=== PATIENT | female | born 1950 | race Caucasian/White ===

== ENCOUNTER 2017-06-22 20:27 | Emergency (ER) | payer MEDICARE ==
[2017-06-22] MEDS ORDERED: Midazolam* 1 MG/ML 10 ML VIAL (10 MG) ONE (20:35)
[2017-06-22] MEDS ORDERED: fentaNYL* 50 MCG/ML 2 ML VIAL (100 MCG VIAL) ONE (20:36)
--- NOTE | 2017-06-23 00:13 | ED ---
Mauricio Camarena Tecjoon, scribthai for Lamar Allred MD on 06/22/17 at 2056 . Throat Pain/Nasal Congestion - HPI Summary HPI Summary: This patient is a 64 year old BIBA to [facility] accompanied by with a chief complaint of esophageal food impaction since yesterday, around 1400. Patient states that she has experienced similar symptoms around 3 times before. Patient states she was eating a TV dinner. The pain is rated 2/10 in severity. Symptoms aggravated by nothing. Symptoms alleviated by nothing. Patient additionally reports difficulty swallowing and drooling. Patient has had esophageal dilation to little relief. - History of Current Complaint Chief Complaint: EDThroatPain Hx Obtained From: Patient Onset/Duration: Sudden Onset, Still Present Severity: Mild Associated Signs And Symptoms: Positive: Dysphagia, Drooling - Allergies/Home Medications Allergies/Adverse Reactions: Allergies Allergy/AdvReac Type Severity Reaction Status Date / Time No Known Allergies Allergy Verified 06/22/17 20:34 PMH/Surg Hx/FS Hx/Imm Hx Previously Healthy: No Cardiovascular History: Reports: Hx Hypertension - ON MEDS Denies: Other Cardiovascular Problems/Disorders GI History: Reports: Other GI Disorders - FOOD GETTING STUCK IN ESOPHAGUS Musculoskeletal History: Reports: Hx Arthritis - OSTEOARTHRITIS, BACK Denies: Other Musculoskeletal History Sensory History: Reports: Hx Cataracts - BHANU, NO SURGERY YET, Hx Contacts or Glasses - GLASSES AND CONTACTS Denies: Hx Hearing Aid Opthamlomology History: Reports: Hx Cataracts - BHANU, NO SURGERY YET, Hx Contacts or Glasses - GLASSES AND CONTACTS Neurological History: Reports: Hx Migraine - SELDOM Denies: Other Neuro Impairments/Disorders - Surgical History Surgery Procedure, Year, and Place: [place]NEE, 2009, [place]. APPEN[place]OMY , 1955, [place], 1957, [place]. RIGHT SHOULDER, 2005, [place]. LEFT FOOT X2, [facility], 2004 Hx Anesthesia Reactions: No - Immunization History Date of Tetanus Vaccine: unk Date of Influenza Vaccine: unk Infectious Disease History: Yes Infectious Disease History: Denies: Traveled Outside the [place] in Last 30 Days - Family History Known Family History: Negative: Hypertension - Social History Lives: With Family Alcohol Use: None Hx Substance Use: No Substance Use Type: Reports: None Hx Tobacco Use: No Smoking Status (MU): Never Smoked Tobacco Review of Systems Negative: Fever Positive: Other - dysphasia, drooling All Other Systems Reviewed And Are Negative: Yes Physical Exam - Summary Physical Exam Summary: VITAL SIGNS: Reviewed. GENERAL: Patient is a well-developed and nourished female who is lying comfortable in the stretcher. Patient is not in any acute respiratory distress. HEAD AND FACE: No signs of trauma. No ecchymosis, hematomas or skull depressions. No sinus tenderness. EYES: PERRLA, EOMI x 2, No injected conjunctiva, no nystagmus. EARS: Hearing grossly intact. Ear canals and tympanic membranes are within normal limits. MOUTH: Oropharynx within normal limits. NECK: Supple, trachea is midline, no adenopathy, no JVD, no carotid bruit, no c- spine tenderness, neck with full ROM. CHEST: Symmetric, no tenderness at palpation LUNGS: Clear to auscultation bilaterally. No wheezing or crackles. CVS: Regular rate and rhythm, S1 and S2 present, no murmurs or gallops appreciated. ABDOMEN: Soft, non-tender. No signs of distention. No rebound no guarding, and no masses palpated. Bowel sounds are normal. EXTREMITIES: FROM in all major joints, no edema, no cyanosis or clubbing. NEURO: Alert and oriented x 3. No acute neurological deficits. Speech is normal and follows commands. SKIN: Dry and warm Triage Information Reviewed: Yes Vital Signs On Initial Exam: Initial Vitals Temp Pulse Resp BP Pulse Ox 99.5 F 91 15 129/58 98 06/22/17 20:32 06/22/17 20:32 06/22/17 20:32 06/22/17 20:32 06/22/17 20:32 Vital Signs Reviewed: Yes Diagnostics - Vital Signs Vital Signs Temp Pulse Resp BP Pulse Ox 06/22/17 20:32 99.5 F 91 15 129/58 98 - Laboratory Lab Statement: Any lab studies that have been ordered have been reviewed, and results considered in the medical decision making process. EENT Course/Dx - Course Course Of Treatment: This patient is a 64 year old BIBA to [facility] accompanied by with a chief complaint of esophageal food impaction since yesterday, around 1400. Patient states that she has experienced similar symptoms around 3 times before. We discussed patient care with Dr. Jay (GI) at 20:54, who agreed to come see the patient. Patient will be diagnosed with esophageal food impaction and discharged. Patient is advised to follow up with Dr. Jay (GI) in 3 weeks. The patient is agreeable with this plan. - Diagnoses Provider Diagnoses: Food impaction of esophagus - Provider Notifications Discussed Care Of Patient With: Andrew Jay - GI Time Discussed With Above Provider: 20:54 - We discussed patient care with Dr. Jay (GI), who agreed to come see the patient. Discharge - Discharge Plan Condition: Stable Disposition: HOME Patient Education Materials: Food Impaction (ED) Referrals: Homero Mojica DO [Primary Care Provider] - 3 Days Andrew Jay MD [Medical Doctor] - 07/07/17 (3 Weeks) Additional Instructions: Continue Omeprazole. Return to the ED for any new or worsening symptoms. The documentation as recorded by the Mauricio garcia Tecjoon accurately reflects the service I personally performed and the decisions made by , Lamar Allred MD.
--- NOTE | 2017-06-23 00:13 | CONS ---
CC: Dr. Mojica Swifton CONSULTATION REPORT: DATE OF CONSULT: 06/22/17 REQUESTING PHYSICIAN: Dr. Lovell in the Emergency Department. PRIMARY CARE PHYSICIAN: Aiyana Barragan. INDICATION: Esophageal foreign body. HISTORY OF PRESENT ILLNESS: Mrs. Vu is a pleasant 67-year-old female, who has a long history of e sophageal strictures. She was most recently scoped on April 11, at which time she had a mid esop hageal stricture dilated to 10 mm. She was recommended to have a repeat EGD in the next 4 to 6 weeks . After that, however, her became ill and she had to cancel the appointment. She had 2 prev ious endoscopies over the past 3 to 4 months, both of which revealed very tight mid esophageal strict ures. The first time her stricture was dilated to 8 mm, the second time to 10 mm, these were approxi mately 2 to 3 weeks apart and she was dilated to 10 mm on April 11. She states that she was eati ng chicken yesterday around noon at 2 o'clock and it became stuck. Since that point, she has not bee n able to swallow any liquids or any saliva. She finally presented to the emergency room this aftern oon at [facility] and was transferred here to [place]. She currently is having substernal ches t pain right below her breast bone. She is unable to swallow liquids or her own saliva. She denies any shortness of breath. She denies any other symptoms at this time. PAST MEDICAL HISTORY: Significant for GERD and esophageal strictures. All of her biopsies have been negative for eosinophilic esophagitis. She also has hypertension. PAST SURGICAL HISTORY: Includes appendectomy, cholecystectomy, breast reduction. MEDICATIONS: She takes Prilosec and she cannot remember the name of her high blood pressure medicati on. ALLERGIES: No known drug allergies. REVIEW OF SYSTEMS: 12 systems were reviewed, other than that mentioned in the HPI were unremarkable. PHYSICAL EXAM: Temperature is 99.5, blood pressure is 129/58. General: This is a well-appearing, m iddle-aged female, in no apparent distress. Alert, oriented, pleasant, fluent. She is spitting up s aliva into an emesis basin. HEENT: Mucous membranes are moist without lesions, ulcers or exudates. Neck: Supple, trachea is midline. Lymph: No supraclavicular or cervical lymphadenopathy. Heart: Regular rate and rhythm. Lungs: Clear to auscultation bilaterally. No wheezes, rales, or rhonchi. Abdomen: Positive bowel sounds. Soft, nontender, nondistended. No hepatosplenomegaly, masses, re bound or guarding. Skin is warm and dry. DIAGNOSTIC STUDIES/LAB DATA: None. ASSESSMENT AND PLAN: A 67-year-old female with a history of esophageal strictures and foreign bodies in the past. She was last dilated on April 11 to 10 mm. She now has chicken stuck in her esopha antoni. It has been there for greater than 24 hours. I had a long discussion with the patient and her regarding performing an upper endoscopy tonight in the emergency room. We will plan on doing that. I also discussed with them that given the long duration of the chicken being stuck in her eso phagus that the likelihood for ulceration is greater and that unfortunately does increase her risk fo r complications from the endoscopy. She also understands this. We will make arrangements for the en doscopy urgently. [id number]/[facility] #: [id number]
[2017-06-23 00:20] VITALS: BP 95/52
--- NOTE | 2017-06-23 21:04 | PRO ---
DATE OF PROCEDURE: 06/22/17 - EMERGENCY DEPT PROCEDURE: EGD performed in the emergency room for foreign body removal. MEDICATIONS GIVEN: 100 mcg IV fentanyl, 9 mg IV Versed. DESCRIPTION OF PROCEDURE: After the EGD procedure including the risks, benefits , and alternatives, not limited to perforation, surgery, and/or were explained to the patient, written consent was then obtained. IV medication was given and a bite-block was placed between the teeth. An Olympus gastroscope was then inserted into the patient's mouth, advanced down the esophagus, into the stomach, and into the distal duodenum. In the mid esophagus, there was a food bolus stuck in the esophagus. I used the Pastor net to remove at least half of the foreign bolus. It was withdrawn from the patient. I reinserted the scope and upon reinsertion of the scope and some gentle air insufflation, the remainder of the food bolus did pass through the esophageal stricture and down into the stomach. Esophageal stricture did contain 2 ulcers. The scope easily navigated through the esophageal stricture, I was using the regular adult gastroscope. I advanced the scope down the esophagus through the GE junction into the body of the stomach. Retroflex view was unremarkable except for a patulous GE junction. Forward view also was unremarkable. Scope was advanced through widely patent pylorus, into the duodenal bulb, into the distal duodenum , both of which were unremarkable. Scope was the withdrawn from the patient. She tolerated the procedure well and was returned to the care of the ED staff. IMPRESSION: 1. Complete upper endoscopy into the distal duodenum with esophageal foreign body removal. 2. Mid esophageal stricture with esophageal foreign body removed with Pastor net. 3. The patient missed her appointment for followup EGD with dilatation, we will arrange this for her. [id number]/[facility] #: [id number] [facility]ENTER[facility]aura
== END 2017-06-23 00:21 | disposition home or self-care (01) ==
LOC: ED 20:27
DX: T18.120A Food in esophagus causing compression of trachea, initial encounter (principal); I10 Essential (primary) hypertension; K21.9 Gastro-esophageal reflux disease without esophagitis; X58.XXXA Exposure to other specified factors, initial encounter; Y92.9 Unspecified place or not applicable
CPT/HCPCS: 96374; 96375; 99156; 99284; J2250; J3010

== ENCOUNTER 2019-03-24 08:22 | Inpatient (IN) | payer MEDICARE ==
[~2019-03-24 08:22] MED LIST: Buffered Lidocaine 1% SYRIN* 1 ML/SYRINGE INTRADERM ONE; Lactated Ringers 1000 ML Bag* 1,000 ML IV SCH; Tranexamic Acid 1,000 MG in NS 0.9% 50 ML* (outpatient use) IV SCH
[2019-03-24] MEDS ORDERED: ceFAZolin 2 GM in NS PREMIX(*) 2 GM/100 ML BAG IVPB ONE (08:26)
--- OUTSIDE RECORDS SUMMARY | 2019-03-24 08:26 | XMS REPORT | Continuity of Care Document ---
:1950 External Reference #:[id number] Author Name Delano Chávez M.D. (transmitted by agent of provider Awa Carrasco) Address [address] [place] [address] [place] [address] Care Team Providers Name Role Phone Homero Mojica D.O. 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 Onset: limb Social History Type Date Description Comments Sex Unknown ETOH Use Denies alcohol use Tobacco Use Start: Unknown Patient has never smoked Smoking Status Reviewed: 02/20/19 Patient has never smoked Exercise Type/Frequency Exercises sporadically Allergies, Adverse Reactions, Alerts Active Allergies Reaction Severity Comments Date Keflex 07/11/2016 Inactive Allergies NKDA 09/04/2013 Medications Active Medications SIG Qnty Indications Ordering Date Provider Diclofenac Sodium apply 4 gr to 300gm M17.11 Delano Chávez, 01/02/2019 1% Gel right knee M.D. twice a day as needed Lisinopril 1 by mouth Unknown 40mg Tablets every day Hydrochlorothiazide 1 by mouth Unknown 25mg Tablets every day Omeprazole 1 by mouth Unknown 40mg Capsules DR every day Zolpidem Tartrate 1/2 to 1 tab Unknown 10mg Tablets by mouth every night at bedtime as needed Tramadol HCL 1-2 tablets Unknown 50mg Tablets every 6 hours as needed Metoprolol Succinate ER 1 by mouth Unknown 50mg every day Tablets ER 24HR Probiotic 1 by mouth Unknown Capsules every day Ferrous Sulfate 1 twice a day Unknown 324(65Fe) mg with meal Tablets DR Vitamin C ER 1 by mouth Unknown 500mg Capsules ER every day Tylenol Extra Strength 2 tabs by Unknown 500mg mouth every 6 Tablets hours as needed Immunizations Description No Information Available Vital Signs Date Vital Result Comment 02/20/2019 11:26am Height 60 inches 5'0" Weight 107.25 lb Heart Rate 56 /min BP Systolic Sitting 132 mmHg BP Diastolic Sitting 76 mmHg Body Temperature 97.6 F BMI (Body Mass Index) 20.9 kg/m2 01/02/2019 10:49am Height 60 inches 5'0" Weight 105.00 lb weight per patient Heart Rate 60 /min BP Systolic Sitting 144 mmHg BP Diastolic Sitting 80 mmHg Body Temperature 98.5 F BMI (Body Mass Index) 20.5 kg/m2 Results Description No Information Available Procedures Description No Information Available Medical Devices Description No Information Available Encounters Type Date Location Provider Dx Diagnosis Office Visit 01/02/2019 [facility] Delano Chávez, M17.11 Unilateral primary 10:30a at [facility] osteoarthritis, right knee Assessments Date Code Description Provider 02/20/2019 M17.11 Unilateral primary osteoarthritis, right knee Delano Chávez M.D. 01/02/2019 M17.11 Unilateral primary osteoarthritis, right knee Delano Chávez M.D. Plan of Treatment 02/20/2019 - Delano Chávez M.D.M17.11 Unilateral primary osteoarthritis, right kneeFollow up:Will likely need a visit the week before surgery and then 4 weeks afterwards Functional Status Description No Information Available Mental Status Description No Information Available Referrals Description No Information Available
--- OUTSIDE RECORDS SUMMARY | 2019-03-24 08:26 | XMS REPORT | Continuity of Care Document ---
:1950 External Reference #:[id number] Author Name BRAIN Benjamin Address [address] [place] [id number] Care Team Providers Name Role Phone Homero Mojica D.O. 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 Medicine Problems Active Problems Provider Date Complex [...] BMI (Body Mass Index) 20.5 kg/m2 Results Test Acquired Date Facility Test Result H/L Range Note Urinalysis Profile 03/10/2019 [facility] Urine Color Straw [address] [place] [address] [phone] Urine Appearance Clear Urine Specific Secretary 1.008 Low 1.010-1.030 Urine pH 7.0 Normal 5-9 Urine Urobilinogen Negative Negative Urine Ketones Negative Negative Urine Protein Negative Negative Urine Leukocytes Negative Negative Urine Blood 1+ Abnormal Negative Urine Nitrite Negative Negative Urine Bilirubin Negative Negative Urine Glucose Negative Negative Urine White Blood Cell Absent Absent Urine Red Blood Cell 1+(3-5/hpf) Abnormal Absent Urine Bacteria Absent Absent CBC Auto 03/10/2019 [facility] White Blood 4.7 10^3/uL Normal 3.5-10.[address] [place] [address] [phone] Red Blood Count 3.57 10^6/uL Low 3.70-4.87 Hemoglobin 12.4 g/dL Normal 12.0-16.0 Hematocrit 36 % Normal 35-47 Mean Corpuscular Volume 100 fL High 80-97 Mean Corpuscular Hemoglobin 35 pg High 27-31 Mean Corpuscular HGB Conc 35 g/dL Normal 31-36 Red Cell Distribution Width 13 % Normal 10-15 Platelet Count 279 10^3/uL Normal 150-450 Mean Platelet Volume 7.0 fL Low 7.4-10.4 Abs Neutrophils 2.6 10^3/uL Normal 1.5-7.7 Abs Lymphocytes 1.4 10^3/uL Normal 1.0-4.8 Abs Monocytes 0.4 10^3/uL Normal 0-0.8 Abs Eosinophils 0.3 10^3/uL Normal 0-0.6 Abs Basophils 0.0 10^3/uL Normal 0-0.2 Abs Nucleated RBC 0.0 10^3/uL Granulocyte % 55.2 % Lymphocyte % 29.0 % Monocyte % 8.9 % Eosinophil % 5.9 % Basophil % 1.0 % Nucleated Red Blood Cells % 0.1 Inr/Protime 03/10/2019 [facility] Inr 1.03 Normal 0.82-1.09 [address] [place] [address] [phone] Basic Metabolic 03/10/2019 [facility] Sodium 139 mmol/L Normal 135-145 Panel [address] [place] [address] [phone] Potassium 3.2 mmol/L Low 3.5-5.0 Chloride 102 mmol/L Normal 101-111 Co2 Carbon Dioxide 30 mmol/L Normal 22-32 Anion Gap 7 mmol/L Normal 2-11 Glucose 106 mg/dL High 70-100 Blood Urea Nitrogen 15 mg/dL Normal 6-24 Creatinine 1.11 mg/dL High 0.51-0.95 BUN/Creatinine Ratio 13.5 Normal 8-20 Calcium 9.4 mg/dL Normal 8.6-10.3 Egfr Non- 48.6 >60 Egfr 58.8 >60 2 Type & Screen 03/10/2019 [facility] Patient Blood Type A Positive [address] [place] [address] [phone] Antibody Screen NEGATIVE 1 Standard intensity warfarin therapeutic range: 2.0-3.0 High intensity warfarin therapeutic range: 2.5-3.5 2 Because ethnic data is not always readily available, this report includes an eGFR for both -Americans and non- Americans. The National Kidney Disease Education Program (NKDEP) does not endorse the use of the MDRD equation for patients that are not between the ages of 18 and 70, are , have extremes of body size, muscle mass, or nutritional status, or are non- or non-. According to the National Kidney Foundation, irrespective of diagnosis, the stage of the disease is based on the level of kidney function: Stage Description GFR(mL/min/1.73 m(2)) 1 Kidney damage with normal or decreased GFR 90 2 Kidney damage with mild decrease in GFR 60-89 3 Moderate decrease in GFR 30-59 4 Severe decrease in GFR 15-29 5 Kidney failure <15 (or dialysis) Procedures Description No Information Available Medical Devices Description No Information Available Encounters Type Date Location Provider Dx Diagnosis Office Visit 02/20/2019 [facility] [place] Watt7.11 Unilateral primary 11:15a at [facility] osteoarthritis, right knee Office Visit 01/02/2019 [facility] Delano Chávez M17.11 Unilateral primary 10:30a at [facility] osteoarthritis, right knee Assessments Date Code Description Provider 02/20/2019 [id number] Unilateral primary osteoarthritis, right knee Delano Chávez M.D. 01/02/2019 M17.11 Unilateral primary osteoarthritis, right knee Delano Chávez M.D. Plan of Treatment Future Appointment(s):04/17/2019 11:00 am - Del[facility] M.D. at [facility]03/24/2019 10:00 am [facility] - Delano Chávez M.D.M17.11 Unilateral primary osteoarthritis, right kneeFollow up:Will likely need a visit the week before surgery and then 4 weeks afterwards Functional Status Description No Information Available Mental Status Description No Information Available Referrals Description No Information Available
[2019-03-24] MEDS ORDERED: ROPIVACAINE 5 MG/ML 30 ML BTL (0.5%) ONE (10:43)
[2019-03-24] MEDS ORDERED: Midazolam* 1 MG/ML 2 ML VIAL (2 MG) ONE (10:43)
[2019-03-24] MEDS ORDERED: Propofol* 10 MG/ML 20 ML BTL ONE (10:43)
[2019-03-24] MEDS ORDERED: Dexmedetomidine* 200 MCG/2 ML 2 ML VIAL ONE (10:43)
[2019-03-24] MEDS ORDERED: Lidocaine 2% PF * 5 ML VIAL ONE (10:43)
[2019-03-24] MEDS ORDERED: Lidocaine 1% w EPI 1:200,000* SDV 30 ML VIAL ONE (11:40)
[2019-03-24] MEDS ORDERED: Bupivacaine 0.5%* 50 ML MDV VIAL ONE (11:40)
[2019-03-24] MEDS ORDERED: fentaNYL* 50 MCG/ML 2 ML VIAL (100 MCG VIAL) ONE ×3 (12:19→15:01)
[2019-03-24] MEDS ORDERED: EPHEDrine (Pressors)* 50 MG/ML VIAL ONE (12:26)
[2019-03-24] MEDS ORDERED: Bupivacaine 0.5% W/EPI SDV* 30 ML VIAL ONE (12:37)
[2019-03-24] MEDS ORDERED: Dexamethasone IV* 4 MG/ML 1 ML (4 MG) ONE (12:39)
[2019-03-24] MEDS ORDERED: Ondansetron INJ* 2 MG/ML VIAL ONE (12:39)
[2019-03-24] MEDS ORDERED: Ketorolac INJ* 30 MG/ML 1 ML VIAL ONE (12:39)
[2019-03-24] MEDS ORDERED: Metoclopramide IV* 5 MG/ML 2 ML VIAL ONE (12:39)
[2019-03-24] MEDS ORDERED: oxyCODONE TAB* 5 MG TAB PO PRN (12:55)
[2019-03-24] MEDS ORDERED: fentaNYL* 50 MCG/ML 2 ML VIAL (100 MCG VIAL) IV PRN (12:55)
[2019-03-24] MEDS ORDERED: DiMENhydriNATE IV* 50 MG/ML VIAL IV PUSH PRN (12:55)
[2019-03-24] MEDS ORDERED: Naloxone* 0.4 MG/ML 1 ML VIAL IV PRN (12:55)
[2019-03-24] MEDS ORDERED: Rocuronium* 10 MG/ML VIAL ONE (12:57)
[2019-03-24] MEDS ORDERED: Phenylephrine 40 MCG/ML SYRINGE ONE (14:01)
[2019-03-24] MEDS ORDERED: HYDROmorphone INJ1* 1 MG/ML SYRINGE ONE (14:21)
[2019-03-24] MEDS ORDERED: Acetaminophen IV 1GM/100ML * 100 ML ONE (14:22)
[2019-03-24] MEDS ORDERED: Glycopyrrolate IV* 0.2 MG/ML 1 ML VIAL ONE (14:37)
[2019-03-24] MEDS ORDERED: Neostigmine Methylsulfate* 1 MG/ML 10 ML VIAL (1 mg/ml) ONE (14:37)
[2019-03-24] MEDS ORDERED: Morphine INJ* 2 MG/ML 1 ML SYRINGE (TWO MG - NEW SYRINGE VERSION) IV PRN (14:46)
[2019-03-24] MEDS ORDERED: diPHENhydraMINE IV* 50 MG/ML 1 ml VIAL (BENADRYL) IV PRN (14:46)
[2019-03-24] MEDS ORDERED: Magnesium Hydroxide LIQ* 30 ML UDC PO PRN (14:46)
[2019-03-24] MEDS ORDERED: Ondansetron ODT TAB* 4 MG PO PRN (14:46)
[2019-03-24] MEDS ORDERED: Ondansetron INJ* 2 MG/ML VIAL IV PRN (14:46)
[2019-03-24] MEDS ORDERED: diPHENhydraMINE PO* 25 MG PO PRN (14:46)
[2019-03-24] MEDS: D5W 1/2 NS 1000 ML BAG* 1,000 ML IV SCH (16:33)
[2019-03-24] MEDS ORDERED: Warfarin TAB(*) 6 MG PO ONE (17:00)
[2019-03-24] MEDS: oxyCODONE TAB* 5 MG TAB PO PRN ×2 (17:16→21:37)
[2019-03-24] MEDS: traMADol TAB* 50 MG PO SCH (17:16)
--- NOTE | 2019-03-24 20:07 | OP ---
DATE OF OPERATION: 03/24/19 - ROOM #346 DATE OF : 46 SURGEON: Delano Chávez MD. DURABLE MEDICAL EQUIPMENT TECHNICIAN: Roxie Ng RPA. ANESTHESIA: General endotracheal. PRE-OP DIAGNOSIS: Osteoarthritis, right knee. POST-OP DIAGNOSIS: Osteoarthritis, right knee. OPERATIVE PROCEDURE: Right total knee arthroplasty with NAVIO guidance. ESTIMATED BLOOD LOSS: 50 cc. COMPLICATIONS: None. HARDWARE: [employer] #5 narrow femur, Arianna size III tibia, 11 mm polyethylene spacer, 32 mm polyethylene button. INDICATION: Ms. Vu is a 68-year-old female who reports a long history of troubles with her right knee. She had presented to the office for a wrist problem and had been followed up complaining of her right knee. By x-ray, she was bone-on- bone in the lateral compartment and she had an obvious valgus deformity on exam. She was very interested in having something definitive done for the knee as she had previously done antiinflammatories and physical therapy , and while these have helped, she said the knee has become more and more painful as time has gone by. I discussed with her that a total knee arthroplasty should work well to decrease her pain and improve her function. The risks of surgery such as infection, scar formation, stiffness, DVT, pulmonary embolism, hardware failure, and continued pain were some of the risks discussed. She had been declared medically optimized and wished to proceed. DESCRIPTION OF PROCEDURE: The patient was brought in to the OR and general endotracheal anesthesia was established. A Somers catheter was placed. Tourniquet was placed over the proximal right thigh and was used during the case. Total tourniquet time would be 84 minutes. Right knee was prepped and then draped. Esmarch was used to exsanguinate the leg and the tourniquet was raised. Skin over the incisional area was infiltrated using 20 cc of 0.25% Marcaine with epinephrine. A midline incision was made beginning 4 fingerbreadths above the superior pole of the patella and carried down to the medial side of the tibial tubercle. Incision was carried down through the skin and subcutaneous tissues. Small bleeders encountered were ligated using electrocautery. Extensor mechanism was exposed and a sharp parapatellar arthrotomy was made. A gush of clear yellowish joint fluid was encountered. Soft tissues were sharply elevated from the medial side of the tibia and the fat pad was sharply excised. Edges of the patella were also sharply cleaned and the patella measured approximately 16 mm in thickness, and a nice cut was taken, leaving approximately 11 mm of a nice smooth surface. The patella was then easily subluxated laterally. The knee was flexed up and nice exposure of the distal femur was obtained. Femoral bone pins were placed for NAVIO guidance and then the skin 4 fingerbreadths below the tibial tubercle was incised so that the tibial pins could be placed. NAVIO references were then input with the arrays as well as the pins. Range of motion was also done to make sure that we had good nice exposure of the whole leg. Once this was done, the [place]'s line was taken and femur and tibia were scanned into the NAVIO. Once this was done, the components were selected. I templated her to approximately 4. Navio selected a 5 initially and she was adjusted to a 5 narrow, which seemed to fit better. Tibia sat better for a 3. She had the classic valgus issues and with the looseness medially. Components were adjusted until this was minimized and her flexion and extension gaps appeared to be acceptable. Distal femur was then burred using the NAVIO and the pin holes were then placed and then the holes for the cutting block were also placed. With placing the block, however, her bone was so soft that I could place the block anywhere. Block was gently pushed in by hand and then using the top hat for the NAVIO, this was held on the top so that the alignment was essentially perfect while this was pushed in the rest of the way. Three pins were then used to hold the cutting block in place. Anterior cut was taken and she could have been moved a little more posteriorly as the NAVIO guidance is quite conservative. Posterior cut and chamfer cuts were all taken. Attention was turned to the tibia. Peg holes were burred using the NAVIO and cutting block was placed. Again, I could rock the cutting block into any direction and the top hat was used such that the alignment was almost perfect and again, 3 pins were used to pin this into place. Tibial cut was taken and tibial cut appeared a little generous. Bone was removed and she was trialed with a spacer block. She was just a little bit loose in flexion and extension was quite good. This corresponded well to the templating. Tibia was sized and the 3 sat very nicely. Push pins were placed and the proximal tibia was drilled and then punched. Five femur was placed and the notch cut was finished using the reamer and then the sweat box attendant. She was trialed with a 9 trial polyethylene and she seemed that she was just a little bit loose. I thought, therefore, that the 11 polyethylene would probably work well. Considering we had lost the tibial pin with the tibial placement, she was just taken through range of motion and then stress range of motion and this corresponded well to our templating. Femoral and tibial pins were removed. Patella sized nicely for a 32 and holes were drilled and trial was snapped into place. Patellar tracking was excellent. Trial instrumentation was removed and the knee was copiously pulse lavaged. Cement was being prepared. Posterior condyles, both medial and femoral, each were injected with 10 cc of 0.25% Marcaine with epinephrine. Similarly, an additional 10 cc was placed into the medial gutter and additional 10 cc into the lateral gutter. Tibia followed by femur and patella were all cemented into place. Excess cement was removed and the cement was allowed to harden. Tibial pin sites were repaired during this time. Once the cement had hardened, she was trialed with a 9. It was little loose, and with the 11, really sat nicely. Knee was again copiously pulse lavaged and the 11 polyethylene was then snapped into place. Knee was again pulse lavaged and parapatellar arthrotomy was repaired using interrupted #1 Vicryl sutures. Tourniquet was let down. No significant bleeding was encountered. Subcutaneous tissues were reapproximated using 2-0 Vicryl. Skin was closed using angie. Sterile dressing and a Cryo/ Cuff were applied in the OR. The patient was then extubated in the OR and was stable on transfer to the recovery room. [id number]/[facility] #: [id number] IAN
--- NOTE | 2019-03-24 20:24 | CONS ---
CONSULTATION REPORT: DATE OF CONSULT: 03/24/19 REQUESTING PROVIDER: Dr. Chávez. REASON FOR CONSULT: General co-medical management. HISTORY OF PRESENT ILLNESS: This is a 68-year-old female with a past medical history significant for GERD, esophageal strictures, and hypertension, who was admitted on 03/24/19 status post a right total knee replacement after failing conservative outpatient management. Hospital Medicine was consulted for general co- medical management of her hypertension and GERD. The patient was seen in recovery room just prior to her transfer to the floor, was in good spirits, appeared slightly hard of hearing, denied any pain, and was in no acute distress. PAST MEDICAL HISTORY: Significant for GERD, esophageal strictures, hypertension , osteoarthritis, and depression. PAST SURGICAL HISTORY: Appendectomy, cholecystectomy, breast reduction, left foot surgery x2, pilonidal cyst removal. MEDICATIONS: 1. Tramadol 50 mg p.o. t.i.d. 2. Sertraline 25 mg p.o. q.a.m. 3. Omeprazole 40 mg p.o. q.a.m. 4. Metoprolol tartrate 50 mg p.o. b.i.d. 5. Lisinopril 40 mg p.o. q.p.m. 6. Hydrochlorothiazide 25 mg p.o. q.a.m. 7. Famotidine 20 mg p.o. q.a.m. 8. Probiotics 1 capsule p.o. q.a.m. ALLERGIES: The patient has no known drug allergies. FAMILY HISTORY: Mother had breast cancer. Father had COPD. SOCIAL HISTORY: Denies any tobacco use, alcohol use, or recreational drug use. 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 REVIEW OF SYSTEMS: A 12-point system review was performed that was positive for Somers catheter, mild pain to the right knee, hard of hearing. Denies any chest pain, shortness of breath, abdominal pain, nausea, vomiting, or issues with moving her bowels. PHYSICAL EXAM: Vital Signs: Temperature 97.5 Fahrenheit, 84 pulse, 11 respirations, 98% oxygen on room air, 128/60 blood pressure. General: This is a well-developed woman seen resting in the bed, no acute distress noted. Eyes: Conjunctivae pink and moist. PERRLA. EOMs intact. ENT: Oropharynx clear. Mucous membranes moist. Neck is supple. Cardiac: S1, S2 present. Heart rate regular. No murmurs, gallops, or rubs appreciated. Respiratory: Lung sounds clear throughout bilaterally on room air. No accessory muscle use noted. Abdomen is soft, nontender, nondistended with positive bowel sounds x4. Genitourinary: Somers catheter in place, draining medium clear yellow urine. Musculoskeletal: Able to dorsi and plantarflex, able to move all extremities. Cap refill less than 3 seconds to bilateral lower extremities. 2+ positive pedal pulses. Skin: Dressing intact to right knee with Cryo unit in place. No other open areas or rashes appreciated. Neurologic: Sensation intact to light touch throughout. No focal deficits appreciated. Psych: Alert and oriented x4. Thought content organized. DIAGNOSTIC STUDIES/LAB DATA: Postoperative right knee x-ray showed the expected postoperative changes. No laboratory data for this admission. ASSESSMENT AND PLAN: My impression is that this is a 68-year-old female with a past medical history significant for gastroesophageal reflux disease, esophageal strictures, and hypertension, who was admitted on 03/24/19 status post a right total knee replacement after failing outpatient management. 1. Status post right total knee replacement. Pain and bowel management as per Ortho. PT and OT ordered. Somers to be removed in the a.m. IV fluids until tolerating p.o. well and then may saline lock. 2. Hypertension. We will hold lisinopril and hydrochlorothiazide for now. Blood pressures have been slightly elevated in the PACU, though most recent one was 120s/60s. We will restart if need be with holding parameters tomorrow, though certainly may resume them upon discharge. Continue metoprolol tartrate. 3. Gastroesophageal reflux disease. May continue omeprazole and famotidine. No current signs or symptoms of indigestion. 4. Depression. Continue sertraline. 5. DVT prophylaxis: Continue Coumadin as ordered by Ortho with heparin subcutaneously to bridge. 6. Code status is full code. 7. Condition: The patient is stable. 8. Disposition: Admit inpatient to short-stay surgical. TIME SPENT: Time spent on the patient is about 60 minutes with half of it spent [id number]. Thank you for allowing us to participate in the care of this patient. We will follow during this admission. [id number]/[facility] #: [id number] IAN
[2019-03-24] MEDS: ceFAZolin 1 GM ADVAN(*) 1 GM in NS 0.9% 50 ML* 50 ML IVPB SCH (21:34)
[2019-03-24] MEDS: Acetaminophen TAB* 325 MG PO SCH (21:37)
[2019-03-24] MEDS: Docusate CAP* 100 MG PO SCH (21:37)
[2019-03-24] MEDS: Metoprolol Tartrate TAB* 50 mg PO SCH (21:37)
[2019-03-24] MEDS: Magnesium Hydroxide LIQ* 30 ML UDC PO SCH (21:45)
[2019-03-25] MEDS: traMADol TAB* 50 MG PO SCH ×4 (00:28→17:26)
[2019-03-25] MEDS: D5W 1/2 NS 1000 ML BAG* 1,000 ML IV SCH (03:16)
[2019-03-25] MEDS: oxyCODONE TAB* 5 MG TAB PO PRN ×4 (03:17→21:40)
[2019-03-25] MEDS: ceFAZolin 1 GM ADVAN(*) 1 GM in NS 0.9% 50 ML* 50 ML IVPB SCH ×2 (04:33→11:45)
[2019-03-25] MEDS: Acetaminophen TAB* 325 MG PO SCH ×3 (05:39→21:31)
[2019-03-25 06:09] LABS: Hematocrit 30 % (35-47); Hemoglobin 10.3 g/dL (12.0-16.0); Mean Platelet Volume 7.2 fL (7.4-10.4); Platelet Count 182 10^3/uL (150-450)
[2019-03-25 06:20] LABS: INR 1.24 (0.82-1.09)
[2019-03-25 06:27] LABS: Calcium 8.6 mg/dL (8.6-10.3); EGFR African American 71.2 (>60); EGFR Non-African American 58.9 (>60); Potassium 3.4 mmol/L (3.5-5.0)
[2019-03-25] MEDS: Metoprolol Tartrate TAB* 50 mg PO SCH ×2 (08:34→21:33)
[2019-03-25] MEDS: Heparin VIAL(*) 5000 UNITS/ML VIAL (FIVE THOUSAND) SUBCUT SCH ×3 (08:34→21:32)
[2019-03-25] MEDS: Vitamin THERAPEUTIC TAB PO SCH (08:34)
[2019-03-25] MEDS: Lactobacillus Acidophilus* 1 TAB PO SCH (08:34)
[2019-03-25] MEDS: Famotidine TAB* 20 MG PO SCH (08:34)
[2019-03-25] MEDS: Pantoprazole TAB * 40 MG TAB PO SCH (08:34)
[2019-03-25] MEDS: Docusate CAP* 100 MG PO SCH ×2 (08:34→21:31)
[2019-03-25] MEDS: Sertraline* 25 MG TAB PO SCH (08:34)
[2019-03-25] MEDS: Magnesium Hydroxide LIQ* 30 ML UDC PO SCH ×2 (08:34→21:32)
[2019-03-25] MEDS: Ketorolac INJ* 30 MG/ML 1 ML VIAL IV PRN ×3 (08:35→20:23)
[2019-03-25] MEDS: Cyclobenzaprine TAB* 10 MG PO PRN ×2 (08:37→14:10)
--- NOTE | 2019-03-25 11:49 | PN ---
Progress Note - Progress Note Date of Service: 03/25/19 SOAP: Subjective: OOB to chair, no significant complaints of pain Objective: Vital Signs Temp Pulse Resp BP Pulse Ox 99.2 F 66 18 118/52 100 03/25/19 11:36 03/25/19 11:36 03/25/19 11:45 03/25/19 11:36 03/25/19 11:36 Laboratory Last Values Hgb 10.3 g/dL (12.0-16.0) L 03/25/19 05:47 Hct 30 % (35-47) L 03/25/19 05:47 Plt Count 182 10^3/uL (150-450) 03/25/19 05:47 MPV 7.2 fL (7.4-10.4) L 03/25/19 05:47 INR (Anticoag Therapy) 1.24 (0.82-1.09) H 03/25/19 05:47 Sodium 133 mmol/L (135-145) L 03/25/19 05:47 Potassium 3.4 mmol/L (3.5-5.0) L 03/25/19 05:47 Chloride 98 mmol/L (101-111) L 03/25/19 05:47 Carbon Dioxide 28 mmol/L (22-32) 03/25/19 05:47 Anion Gap 7 mmol/L (2-11) 03/25/19 05:47 BUN 16 mg/dL (6-24) 03/25/19 05:47 Creatinine 0.94 mg/dL (0.51-0.95) 03/25/19 05:47 Est GFR ( Amer) 71.2 (>60) 03/25/19 05:47 Est GFR (Non-Af Amer) 58.9 (>60) 03/25/19 05:47 BUN/Creatinine Ratio 17.0 (8-20) 03/25/19 05:47 Glucose 128 mg/dL (70-100) H 03/25/19 05:47 Calcium 8.6 mg/dL (8.6-10.3) 03/25/19 05:47 incision: c/d/i PE: NVI Assessment: s/p right TKA Plan: 1) PT/OT- WBAT 2) Ancef for 24 hours post-op 3) Lovenox/Coumadin for DVT prophylaxis 4) Home today if PT goals met
[2019-03-25] MEDS ORDERED: Warfarin TAB(*) 4 MG PO ONE (17:00)
[2019-03-26] MEDS: traMADol TAB* 50 MG PO SCH ×3 (00:08→12:49)
[2019-03-26 05:29] LABS: Hematocrit 27 % (35-47); Hemoglobin 9.2 g/dL (12.0-16.0); Platelet Count 164 10^3/uL (150-450)
[2019-03-26] MEDS: Heparin VIAL(*) 5000 UNITS/ML VIAL (FIVE THOUSAND) SUBCUT SCH ×2 (05:30→13:49)
[2019-03-26] MEDS: Acetaminophen TAB* 325 MG PO SCH ×2 (05:30→13:49)
[2019-03-26 05:36] LABS: INR 2.06 (0.82-1.09)
[2019-03-26 05:59] LABS: BUN/Creatinine Ratio 17.4 (8-20); Calcium 8.1 mg/dL (8.6-10.3); EGFR Non-African American 49.6 (>60); Potassium 3.7 mmol/L (3.5-5.0)
[2019-03-26] MEDS: Magnesium Hydroxide LIQ* 30 ML UDC PO SCH (08:08)
[2019-03-26] MEDS: Metoprolol Tartrate TAB* 50 mg PO SCH (08:10)
[2019-03-26] MEDS: Lactobacillus Acidophilus* 1 TAB PO SCH (08:10)
[2019-03-26] MEDS: oxyCODONE TAB* 5 MG TAB PO PRN (08:10)
[2019-03-26] MEDS: Sertraline* 25 MG TAB PO SCH (08:10)
[2019-03-26] MEDS: Vitamin THERAPEUTIC TAB PO SCH (08:10)
[2019-03-26] MEDS: Docusate CAP* 100 MG PO SCH (08:10)
[2019-03-26] MEDS: Famotidine TAB* 20 MG PO SCH (08:10)
[2019-03-26] MEDS: Pantoprazole TAB * 40 MG TAB PO SCH (08:10)
[2019-03-26] MEDS: Ketorolac INJ* 30 MG/ML 1 ML VIAL IV PRN (10:13)
--- NOTE | 2019-03-26 10:49 | DS ---
Orthopedic Discharge Summary - Discharge Summary Date of Admission:03/24/19 Date of Discharge: 03/26/19 Date of Surgery: 03/24/19 Attending Orthopedic Provider: Dr Chávez Pre-operative Diagnosis: Right knee osteoarthritis Operative Procedure: right total knee replacement Disposition of Patient: home with outpt services Condition of Patient: stable History: VIANEY CHOW is a 68 year old F with years of increasingly severe right knee pain. Patient has failed conservative management and has elected to undergo a right total knee replacement Hospital Course: VIANEY was admitted to [facility] on 03/24/19. Patient underwent a right total knee replacement without complication followed by a brief recovery in PACU and transfer to the Short Stay Surgical Unit in stable condition. Our hospitalist service, physical therapy and occupational therapy also participated in this patients care. Post-op day 1: patient was alert and in no acute distress. Dressing was clean, dry and intact. Operative extremity dorsiflexion and plantarflexion intact, sensation intact to light touch distally, DP2+. Post-op day two: No CP, SOB, dizziness or nausea. Pt appears well, NAD. dressing was changed, incision was clean, dry and intact. Patient was deemed to be medically and orthopedically stable for discharge. Physical therapy goals were met. Home Medications Medication Instructions Recorded Confirmed Type Hydrochlorothiazide TAB* 25 mg PO QAM 12/31/15 03/10/19 History [Hydrodiuril TAB*] Famotidine [Pepcid] 20 mg PO QAM 03/10/19 03/10/19 History L.acidoph,Paracasei, B.lactis 1 each PO QAM 03/10/19 03/10/19 History [Probiotic] Lisinopril TAB* [Prinivil TAB 10 40 mg PO QPM 03/10/19 03/10/19 History MG*] Metoprolol Tartrate 50 mg PO BID 03/10/19 03/10/19 History Omeprazole 40 mg PO QAM 03/10/19 03/10/19 History Sertraline* [Zoloft*] 25 mg PO QAM 03/10/19 03/10/19 History Acetaminophen TAB* [Tylenol TAB*] 975 mg PO Q8HR tab 03/26/19 Rx Docusate CAP* [Colace Cap*] 100 mg PO BID PRN #90 cap 03/26/19 Rx Warfarin TAB(*) [Coumadin TAB(*)] 2 mg PO DAILY #90 tab 03/26/19 Rx oxyCODONE/Acetam5/325MG PREPAK 2 tab PO Q4HR PRN #70 tab MDD 10 03/26/19 Rx [Percocet 5/325 TAB*] Discharge Instructions following Orthopedic Surgery: Activity: * Weight Bearing as tolerated * Continue physical therapy and occupational therapy exercises as shown * outpatient PT Wound care: * OK to shower on post-op day 3, no bathing, swimming, or submerging wound. * Use gentle soap, pat dry. Cover with antibiotic ointment, gauze, ARNOLD wrap or tape. * Make appt for suture / staple removal with the orthopedic office in 2 weeks Call Orthopedic office for: * Increased drainage * Redness * Increased pain * Fever Go to ER with shortness of breath or chest pain. Diet: * Regular diet * Increase fluids and fiber to prevent constipation. * Continue to use stool softeners, call office if no bowel motion within 48 hours. Medications See Home Medication List in your packet for medications that you should take after discharge. DVT Prophylaxis: Increases bleeding tendency Coumadin Dosing: * Please note that you have been given 2 mg tablets. * Visiting home nurse to draw blood work for INR on Sunday and . * You will be provided with dose instructions on Mondays and . * If you do not receive dosing instruction on dosing, please call our office right away. Please young dosing instructions on your calendar as they are provided to you. * Dosin mg on 03/26. Recheck INR 03/27 for further dosing instructions. Call orthopedic office if you do not receive dosing instructions. No Lovenox needed for bridging Pain Control: Percocet Dosin/325 mg 1-2 tabs by mouth every 4-6 hours as needed for pain. Maximum of 10 tabs per day. Hold for sedation, wean off as soon as pain allows. Please note that Percocet contains Tylenol (acetaminophen). Maximum daily dose of Tylenol is 4000 mg from all sources. Antibiotics are required prior to any dental work. FOLLOW UP: Follow up with [Saira] Within 4 weeks, call for appointment Please call our office with any questions or concerns ([phone]) [facility]
[2019-03-26] MEDS ORDERED: Magnesium Hydroxide LIQ* 30 ML UDC PO PRN (11:11)
[2019-03-26] MEDS ORDERED: Polyethylene Glycol 3350* 17 GM PACKET PO PRN (11:11)
[2019-03-26] MEDS ORDERED: Senna TAB 8.6 mg* TAB PO PRN (11:11)
[2019-03-26 11:29] VITALS: BP 107/51
[2019-03-26] MEDS ORDERED: Bisacodyl SUPP* 10 MG SUPP PR PRN (14:46)
[2019-03-26] MEDS ORDERED: Docusate CAP* 100 MG PO SCH (21:00)
[2019-03-26] MEDS ORDERED: Magnesium Hydroxide LIQ* 30 ML UDC PO SCH (21:00)
== END 2019-03-26 14:45 | disposition home or self-care (01) | DRG 470 ==
LOC: AA 08:22 → SSU 14:46
PROVIDERS: ADMIT Orthopaedic Surgery; ATTEND Orthopaedic Surgery
PROC: 8E0YXBZ Computer Assisted Procedure of Lower Extremity (ICD-10-PCS; 2019-03-24)
PROC: 0SRC0J9 Replacement of Right Knee Joint with Synthetic Substitute, Cemented, Open Approach (ICD-10-PCS; principal; 2019-03-24 10:30)
DX: M17.11 Unilateral primary osteoarthritis, right knee (principal); I10 Essential (primary) hypertension; G89.29 Other chronic pain; M54.9 Dorsalgia, unspecified; M81.0 Age-related osteoporosis without current pathological fracture; K21.9 Gastro-esophageal reflux disease without esophagitis; M21.061 Valgus deformity, not elsewhere classified, right knee; K22.2 Esophageal obstruction; F32.9 Major depressive disorder, single episode, unspecified; Z79.899 Other long term (current) drug therapy
CPT/HCPCS: 36415; 80048; 85014; 85018; 85049; 85610; 88305; 88311; A9270-GY; C1776; G8978-GP-CJ; G8979-GP-CI; J0690; J1100; J1170; J1644; J1885; J2001; J2250; J2405; J2704; J2710; J2765; J2795; J3010; J3490

== ENCOUNTER 2019-10-13 08:35 | Observation (INO) ==
[~2019-10-13 08:35] MED LIST changes: -Buffered Lidocaine 1% SYRIN* 1 ML/SYRINGE INTRADERM ONE; -Lactated Ringers 1000 ML Bag* 1,000 ML IV SCH; +Lactated Ringers 1000 ml BAG 1,000 ML IV SCH; -Tranexamic Acid 1,000 MG in NS 0.9% 50 ML* (outpatient use) IV SCH
[2019-10-13] MEDS ORDERED: Midazolam 2 mg/2 ml VIAL 1 mg/ml 2 ml VIAL (2 mg) ONE (09:27)
[2019-10-13] MEDS ORDERED: fentaNYL 100 mcg/2 ml 50 MCG/ML VIAL ONE ×3 (09:27→14:41)
[2019-10-13] MEDS ORDERED: ceFAZolin 2 GM PREMIX in ORs 2 GM/50 ML BAG ONE (09:50)
[2019-10-13] MEDS ORDERED: Bupivacaine 0.25% SDV 30 ML ONE (10:55)
[2019-10-13] MEDS ORDERED: Propofol 10 MG/ML 20 ML BTL ONE (11:12)
[2019-10-13] MEDS ORDERED: Rocuronium 50 mg VIAL 10 mg/ml 5 ml VIAL (50 mg) ONE (11:13)
[2019-10-13] MEDS ORDERED: Phenylephrine 40 mcg/mL 10mL (400mcg) SYRINGE ONE (11:24)
[2019-10-13] MEDS ORDERED: EPHEDrine (Pressors) 50 MG/ML VIAL ONE (11:42)
[2019-10-13] MEDS ORDERED: Ondansetron 4 mg VIAL 2 MG/ML 2 ml VIAL IV PRN ×2 (12:16→13:01)
[2019-10-13] MEDS ORDERED: Naloxone 0.4 mg VIAL 0.4 mg/ml 1 ml VIAL IV PRN (12:16)
[2019-10-13] MEDS ORDERED: Ondansetron 4 mg VIAL 2 MG/ML 2 ml VIAL ONE (12:30)
[2019-10-13] MEDS ORDERED: Dexamethasone IV 4 MG/ML VIAL 1 ml VIAL ONE (12:30)
[2019-10-13] MEDS ORDERED: Ondansetron ODT 4 mg TAB 4 MG TAB PO PRN (13:01)
[2019-10-13] MEDS ORDERED: Lactulose 30 ml UDC PO PRN (13:01)
[2019-10-13] MEDS ORDERED: diPHENhydraMINE IV 50 MG/ML 1 ml VIAL (BENADRYL) IV PRN (13:01)
[2019-10-13] MEDS ORDERED: diPHENhydraMINE 25 mg TAB PO PRN (13:01)
[2019-10-13] MEDS ORDERED: Magnesium Hydroxide LIQ 30 ML UDC PO PRN (13:01)
[2019-10-13] MEDS: fentaNYL 100 mcg/2 ml 50 MCG/ML VIAL IV PRN ×5 (13:03→14:42)
[2019-10-13] MEDS ORDERED: oxyCODONE/Acetamin 5/325 mg TAB ONE (13:09)
[2019-10-13] MEDS: oxyCODONE/Acetamin 5/325 mg TAB PO PRN ×2 (13:25→13:30)
[2019-10-13] MEDS ORDERED: HYDROmorphone 1 MG/1 ML SYRINGE ONE (13:46)
[2019-10-13] MEDS: HYDROmorphone 1 MG/1 ML SYRINGE IV PRN ×5 (13:49→14:33)
[2019-10-13] MEDS ORDERED: ceFAZolin 1 GM in Dextrose (*) 1 GM/50 ML BAG IVPB SCH (14:00)
[2019-10-13] MEDS ORDERED: D5W 1/2 NS 1000 ml BAG 1,000 ML IV SCH (14:00)
[2019-10-13] MEDS ORDERED: Morphine 2 MG/ML SYRINGE IV PRN (15:28)
[2019-10-13] MEDS ORDERED: oxyCODONE/Acetamin 5/325 mg TAB PO PRN ×2 (17:00)
[2019-10-13] MEDS: ceFAZolin 1 GM* X 3 DOSES POST-OP Q8H (AddVan) IVPB SCH (20:01)
[2019-10-13] MEDS ORDERED: Magnesium Hydroxide LIQ 30 ML UDC PO SCH (21:00)
[2019-10-14] MEDS: ceFAZolin 1 GM* X 3 DOSES POST-OP Q8H (AddVan) IVPB SCH ×2 (04:39→12:25)
[2019-10-14 06:14] LABS: Hematocrit 29 % (35-47); Mean Platelet Volume 7.4 fL (7.4-10.4); Platelet Count 178 10^3/uL (150-450)
[2019-10-14 06:32] LABS: BUN/Creatinine Ratio 20.8 (8-20); Calcium 8.3 mg/dL (8.6-10.3); EGFR African American 61.8 (>60); EGFR Non-African American 51.1 (>60); Potassium 3.8 mmol/L (3.5-5.0)
[2019-10-14] MEDS ORDERED: Vitamin THERAPEUTIC TAB PO SCH (09:00)
[2019-10-14] MEDS ORDERED: Enoxaparin 40 MG/0.4 ML SYR(*) SUBCUT SCH (12:00)
[2019-10-14 12:19] VITALS: BP 118/57
== END 2019-10-14 14:25 | disposition home or self-care (01) ==
LOC: OR 08:35 → SSU 08:35
PROVIDERS: ADMIT Physician Assistant; ATTEND Orthopaedic Surgery

== ENCOUNTER 2020-02-23 16:40 | Observation (INO) ==
[~2020-02-23 16:40] MED LIST changes: +Buffered Lidocaine 1% SYRIN 1 ml INTRADERM ONE; +Bupivacaine 0.5% SDV PF 30ML VIAL ONE; +Dexamethasone IV 4 MG/ML VIAL 1 ml VIAL IV SLOW PU ONE; +Dexamethasone IV 4 MG/ML VIAL 1 ml VIAL ONE; +EPHEDrine (Pressors) 50 MG/ML VIAL ONE; +HYDROmorphone 1 MG/1 ML SYRINGE IV PRN; +HYDROmorphone 1 MG/1 ML SYRINGE ONE; +Lactulose 30 ml UDC PO PRN; +Lidocaine 1% w EPI 1:200,000 SDV 30 ML VIAL ONE; +Lidocaine 2% PF 5 ML VIAL ONE; +Magnesium Hydroxide LIQ 30 ML UDC PO PRN; +Midazolam 2 mg/2 ml VIAL 1 mg/ml 2 ml VIAL (2 mg) ONE; +Naloxone 0.4 mg VIAL 0.4 mg/ml 1 ml VIAL IV PRN; +Ondansetron 4 mg VIAL 2 MG/ML 2 ml VIAL IV PRN; +Ondansetron 4 mg VIAL 2 MG/ML 2 ml VIAL ONE; +Ondansetron ODT 4 mg TAB 4 MG TAB PO PRN; +Propofol 10 MG/ML 20 ML BTL ONE; +Rocuronium 50 mg VIAL 10 mg/ml 5 ml VIAL (50 mg) ONE; +Vancomycin 1,000 MG VIAL ONE; +Vancomycin 1000 MG in NS 0.9% 250 ML IVPB ONE; +diPHENhydraMINE 25 mg TAB PO PRN; +diPHENhydraMINE IV 50 MG/ML 1 ml VIAL (BENADRYL) IV PRN; +fentaNYL 100 mcg/2 ml 50 MCG/ML VIAL ONE
[2020-02-23] MEDS ORDERED: fentaNYL 100 mcg/2 ml 50 MCG/ML VIAL ONE (16:44)
[2020-02-23] MEDS: fentaNYL 100 mcg/2 ml 50 MCG/ML VIAL IV PRN ×4 (16:45→17:17)
[2020-02-23] MEDS ORDERED: Vancomycin per Pharmacy 1 EA NOTE FOLLOW UP SCH (17:00)
[2020-02-23] MEDS: D5W 1/2 NS 1000 ml BAG 1,000 ML IV SCH (17:47)
[2020-02-23] MEDS: Morphine 2 MG/ML SYRINGE IV PRN ×2 (18:58→23:58)
[2020-02-23] MEDS: Magnesium Hydroxide LIQ 30 ML UDC PO SCH (21:16)
[2020-02-24] MEDS: Vancomycin 750 MG in NS 0.9% 250 ML IVPB SCH ×2 (01:58→13:38)
[2020-02-24] MEDS: D5W 1/2 NS 1000 ml BAG 1,000 ML IV SCH (06:36)
[2020-02-24 07:16] LABS: Hematocrit 22 % (35-47); Hemoglobin 7.8 g/dL (12.0-16.0); Mean Platelet Volume 6.6 fL (7.4-10.4); Platelet Count 191 10^3/uL (150-450)
[2020-02-24 07:35] LABS: BUN/Creatinine Ratio 28.4 (8-20); Calcium 8.2 mg/dL (8.6-10.3); EGFR African American 64.6 (>60); EGFR Non-African American 53.4 (>60); Potassium 3.8 mmol/L (3.5-5.0)
[2020-02-24] MEDS: Vitamin THERAPEUTIC TAB PO SCH (09:33)
[2020-02-24] MEDS: CMCS:Omeprazole 20 mg CAP (NF) PO SCH (09:37)
[2020-02-24] MEDS: Magnesium Hydroxide LIQ 30 ML UDC PO SCH ×2 (09:37→22:09)
[2020-02-24 11:57] LABS: Hematocrit 22 % (35-47); Hemoglobin 7.5 g/dL (12.0-16.0)
[2020-02-25] MEDS: Vancomycin 750 MG in NS 0.9% 250 ML IVPB SCH (01:27)
[2020-02-25 06:50] LABS: Hematocrit 22 % (35-47); Hemoglobin 7.4 g/dL (12.0-16.0); Mean Platelet Volume 6.7 fL (7.4-10.4); Platelet Count 178 10^3/uL (150-450)
[2020-02-25] MEDS: Magnesium Hydroxide LIQ 30 ML UDC PO SCH (09:37)
[2020-02-25] MEDS: Vitamin THERAPEUTIC TAB PO SCH (09:38)
[2020-02-25] MEDS: CMCS:Omeprazole 20 mg CAP (NF) PO SCH (09:39)
[2020-02-25 13:22] VITALS: BP 108/58
[2020-02-26] MEDS ORDERED: Scopolamine PATCH Remove NOTE PATCH OFF ONE (06:00)
[2020-02-26] MEDS ORDERED: Influenza VAC *QUAD* 2020-21* 0.5 ML SYRINGE IM ONE (09:00)
[2020-02-26] MEDS ORDERED: Pneumococcal Vac 23-Polyvalent IM ONE (09:00)
== END 2020-02-25 16:45 | disposition home or self-care (01) ==
LOC: SSU 16:40 → OR 17:44
PROVIDERS: ADMIT Orthopaedic Surgery; ATTEND Orthopaedic Surgery

== ENCOUNTER 2021-07-26 18:51 | Inpatient (IN) ==
[2021-07-26] MEDS ORDERED: NS 0.9% 1000 ml BAG 1,000 ML IV SCH (21:30)
[2021-07-26] MEDS ORDERED: fentaNYL 100 mcg/2 ml 50 MCG/ML VIAL IV SLOW PU ONE (21:33)
[2021-07-26 22:09] LABS: ABS Basophils 0.1 10^3/ul (0-0.2); ABS Eosinophils 0.2 10^3/ul (0-0.6); ABS Lymphocytes 1.1 10^3/ul (1.0-4.8); ABS Monocytes 0.5 10^3/ul (0-0.8); ABS Neutrophils 3.6 10^3/ul (1.5-7.7); Eosinophil % 3.4 %; Hematocrit 33 % (35-47); Hemoglobin 11.2 g/dL (12.0-16.0); Lymphocyte % 20.5 %; Mean Corpuscular HGB Conc 34 g/dL (31-36); Mean Corpuscular Hemoglobin 33 pg (27-31); Mean Corpuscular Volume 97 fL (80-97); Mean Platelet Volume 6.6 fL (7.4-10.4); Platelet Count 337 10^3/uL (150-450); Red Blood Count 3.45 10^6 /uL (3.70-4.87); Red Cell Distribution Width 14 % (10-15); White Blood Count 5.4 10^3/uL (3.5-10.8)
[2021-07-26 22:44] LABS: Calcium 9.5 mg/dL (8.6-10.3); Potassium 3.6 mmol/L (3.5-5.0); eGFR CKD-EPI 81.4 (>60)
[2021-07-27] MEDS: Acetaminophen IV 1 GM/100ML 100 ML IV SCH ×4 (01:00→18:06)
[2021-07-27] MEDS ORDERED: fentaNYL 100 mcg/2 ml 50 MCG/ML VIAL IV SLOW PU ONE (05:05)
[2021-07-27 06:02] LABS: ABS Eosinophils 0.2 10^3/ul (0-0.6); ABS Lymphocytes 0.9 10^3/ul (1.0-4.8); ABS Monocytes 0.4 10^3/ul (0-0.8); ABS Neutrophils 2.4 10^3/ul (1.5-7.7); Hematocrit 32 % (35-47); Hemoglobin 11.3 g/dL (12.0-16.0); Lymphocyte % 22.6 %; Mean Corpuscular HGB Conc 35 g/dL (31-36); Mean Corpuscular Hemoglobin 34 pg (27-31); Mean Corpuscular Volume 96 fL (80-97); Mean Platelet Volume 6.7 fL (7.4-10.4); Nucleated Red Blood Cells % 0.1; Platelet Count 311 10^3/uL (150-450); Red Blood Count 3.36 10^6 /uL (3.70-4.87); Red Cell Distribution Width 13 % (10-15); White Blood Count 3.9 10^3/uL (3.5-10.8)
[2021-07-27 06:22] LABS: Calcium 9.1 mg/dL (8.6-10.3); Potassium 3.5 mmol/L (3.5-5.0); eGFR CKD-EPI 86.8 (>60)
[2021-07-27] MEDS: Cholecalciferol (VIT D3) 1,000 unit TAB PO SCH ×2 (07:23→12:09)
[2021-07-27] MEDS ORDERED: Morphine 4 MG/ML VIAL (1 ml) ONE (11:03)
[2021-07-27] MEDS ORDERED: Morphine 4 MG/ML VIAL (1 ml) IV PRN (11:07)
[2021-07-27 16:45] LABS: ABS Eosinophils 0.3 10^3/ul (0-0.6); ABS Monocytes 0.5 10^3/ul (0-0.8); Eosinophil % 5.8 %; Hematocrit 33 % (35-47); Hemoglobin 11.3 g/dL (12.0-16.0); Lymphocyte % 20.5 %; Mean Corpuscular HGB Conc 34 g/dL (31-36); Mean Corpuscular Hemoglobin 33 pg (27-31); Mean Corpuscular Volume 96 fL (80-97); Mean Platelet Volume 6.4 fL (7.4-10.4); Platelet Count 341 10^3/uL (150-450); Red Blood Count 3.45 10^6 /uL (3.70-4.87); Red Cell Distribution Width 13 % (10-15); White Blood Count 4.8 10^3/uL (3.5-10.8)
[2021-07-27 16:55] LABS: Activated Partial Thrombo Time 38.6 seconds (26.0-38.0); INR 1.17 (0.86-1.15)
[2021-07-27 17:15] LABS: eGFR CKD-EPI 77.8 (>60)
[2021-07-27] MEDS: Heparin 5000 UNITS/ML 1 mL VIAL SUBCUT SCH (20:30)
[2021-07-28] MEDS: Acetaminophen IV 1 GM/100ML 100 ML IV SCH ×4 (01:11→19:42)
[2021-07-28] MEDS: Cholecalciferol (VIT D3) 1,000 unit TAB PO SCH (09:33)
[2021-07-28] MEDS: Heparin 5000 UNITS/ML 1 mL VIAL SUBCUT SCH ×2 (09:34→20:48)
[2021-07-29] MEDS: Acetaminophen IV 1 GM/100ML 100 ML IV SCH ×4 (01:39→16:23)
[2021-07-29] MEDS: Cholecalciferol (VIT D3) 1,000 unit TAB PO SCH (08:53)
[2021-07-29] MEDS ORDERED: Flu vaccine *QUAD* 2021-22* 0.5 ML SYRINGE IM ONE (09:00)
[2021-07-29] MEDS ORDERED: Pneumococcal Vac 23-Polyvalent IM ONE (09:00)
[2021-07-29] MEDS: Heparin 5000 UNITS/ML 1 mL VIAL SUBCUT SCH ×2 (09:04→21:09)
[2021-07-30] MEDS: Acetaminophen IV 1 GM/100ML 100 ML IV SCH ×2 (00:33→07:26)
[2021-07-30 05:43] LABS: ABS Basophils 0.1 10^3/ul (0-0.2); ABS Eosinophils 0.4 10^3/ul (0-0.6); ABS Lymphocytes 0.9 10^3/ul (1.0-4.8); ABS Monocytes 0.5 10^3/ul (0-0.8); Eosinophil % 8.7 %; Hematocrit 33 % (35-47); Hemoglobin 11.2 g/dL (12.0-16.0); Lymphocyte % 18.3 %; Mean Corpuscular HGB Conc 34 g/dL (31-36); Mean Corpuscular Hemoglobin 33 pg (27-31); Mean Corpuscular Volume 96 fL (80-97); Mean Platelet Volume 6.7 fL (7.4-10.4); Platelet Count 332 10^3/uL (150-450); Red Blood Count 3.41 10^6 /uL (3.70-4.87); Red Cell Distribution Width 14 % (10-15); White Blood Count 4.9 10^3/uL (3.5-10.8)
[2021-07-30] MEDS: Heparin 5000 UNITS/ML 1 mL VIAL SUBCUT SCH ×2 (09:27→21:48)
[2021-07-30] MEDS: Cholecalciferol (VIT D3) 1,000 unit TAB PO SCH (09:30)
[2021-07-30] MEDS ORDERED: Senna TAB 8.6 mg TAB PO PRN (09:38)
[2021-07-30] MEDS: Polyethylene Glycol 3350 17 GM PACKET PO PRN (10:33)
[2021-07-30] MEDS: Magnesium Hydroxide LIQ 30 ML UDC PO PRN (10:33)
[2021-07-30] MEDS ORDERED: Magnesium Hydroxide LIQ 30 ML UDC PO SCH (21:00)
[2021-07-31] MEDS: Heparin 5000 UNITS/ML 1 mL VIAL SUBCUT SCH ×2 (08:48→22:27)
[2021-07-31] MEDS: Polyethylene Glycol 3350 17 GM PACKET PO PRN (08:49)
[2021-07-31] MEDS: Cholecalciferol (VIT D3) 1,000 unit TAB PO SCH (08:51)
[2021-08-01 05:59] LABS: ABS Eosinophils 0.3 10^3/ul (0-0.6); ABS Lymphocytes 1.1 10^3/ul (1.0-4.8); ABS Monocytes 0.5 10^3/ul (0-0.8); ABS Neutrophils 2.3 10^3/ul (1.5-7.7); Eosinophil % 7.6 %; Hematocrit 32 % (35-47); Hemoglobin 10.8 g/dL (12.0-16.0); Lymphocyte % 25.6 %; Mean Corpuscular HGB Conc 34 g/dL (31-36); Mean Corpuscular Hemoglobin 33 pg (27-31); Mean Corpuscular Volume 97 fL (80-97); Mean Platelet Volume 6.7 fL (7.4-10.4); Platelet Count 318 10^3/uL (150-450); Red Blood Count 3.28 10^6 /uL (3.70-4.87); Red Cell Distribution Width 14 % (10-15); White Blood Count 4.3 10^3/uL (3.5-10.8)
[2021-08-01 07:37] LABS: Calcium 8.9 mg/dL (8.6-10.3); Potassium 4.2 mmol/L (3.5-5.0)
[2021-08-01 07:42] LABS: eGFR CKD-EPI 62.5 (>60)
[2021-08-01] MEDS: Cholecalciferol (VIT D3) 1,000 unit TAB PO SCH (08:58)
[2021-08-01] MEDS ORDERED: Dexamethasone IV 4 MG/ML VIAL 1 ml VIAL ONE (11:57)
[2021-08-01] MEDS ORDERED: Propofol 10 MG/ML 20 ML BTL ONE (11:57)
[2021-08-01] MEDS ORDERED: Lidocaine 2% PF 5 ML VIAL ONE (11:57)
[2021-08-01] MEDS ORDERED: Rocuronium 50 mg VIAL 10 mg/ml 5 ml VIAL (50 mg) ONE (11:58)
[2021-08-01] MEDS ORDERED: fentaNYL 100 mcg/2 ml 50 MCG/ML VIAL ONE (11:58)
[2021-08-01] MEDS ORDERED: Midazolam 2 mg/2 ml VIAL 1 mg/ml 2 ml VIAL (2 mg) ONE (11:59)
[2021-08-01] MEDS ORDERED: Naloxone 0.4 mg VIAL 0.4 mg/ml 1 ml VIAL IV PRN (12:37)
[2021-08-01] MEDS ORDERED: Ondansetron 4 mg VIAL 2 MG/ML 2 ml VIAL IV PRN (12:37)
[2021-08-01] MEDS ORDERED: fentaNYL 100 mcg/2 ml 50 MCG/ML VIAL IV PRN (12:37)
[2021-08-01] MEDS ORDERED: EPHEDrine (Pressors) 50 MG/ML VIAL ONE (13:12)
[2021-08-01] MEDS ORDERED: Acetaminophen IV 1 GM/100ML 100 ML IV ONE (14:18)
[2021-08-01] MEDS ORDERED: Ondansetron 4 mg VIAL 2 MG/ML 2 ml VIAL ONE (14:18)
[2021-08-01] MEDS ORDERED: HYDROmorphone 1 MG/1 ML SYRINGE ONE (15:06)
[2021-08-01] MEDS: HYDROmorphone 1 MG/1 ML SYRINGE IV PRN ×3 (15:09→15:25)
[2021-08-01] MEDS: Morphine 4 MG/ML VIAL (1 ml) IV PRN ×2 (16:51→22:11)
[2021-08-01] MEDS: ceFAZolin VIAL 1 GM in NS 0.9% 50 ML 50 ML IVPB SCH (21:23)
[2021-08-02] MEDS: ceFAZolin VIAL 1 GM in NS 0.9% 50 ML 50 ML IVPB SCH ×2 (05:40→13:53)
[2021-08-02 06:07] LABS: Hematocrit 27 % (35-47); Hemoglobin 9.2 g/dL (12.0-16.0); Mean Platelet Volume 6.7 fL (7.4-10.4); Platelet Count 291 10^3/uL (150-450)
[2021-08-02 06:27] LABS: Calcium 8.6 mg/dL (8.6-10.3); Potassium 4.3 mmol/L (3.5-5.0); eGFR CKD-EPI 60.9 (>60)
[2021-08-02] MEDS: Polyethylene Glycol 3350 17 GM PACKET PO PRN (10:56)
[2021-08-02] MEDS: Cholecalciferol (VIT D3) 1,000 unit TAB PO SCH (11:03)
[2021-08-02] MEDS ORDERED: Enoxaparin 40 MG/0.4 ML SYR SUBCUT SCH (12:00)
[2021-08-02] MEDS ORDERED: NS 0.9% 500 ml BAG 500 ML IV ONE (15:55)
[2021-08-02 17:12] LABS: Hematocrit 30 % (35-47); Hemoglobin 9.9 g/dL (12.0-16.0)
[2021-08-02] MEDS: Magnesium Hydroxide LIQ 30 ML UDC PO PRN (23:38)
[2021-08-03 06:04] LABS: Hematocrit 26 % (35-47); Mean Platelet Volume 6.8 fL (7.4-10.4); Platelet Count 272 10^3/uL (150-450)
[2021-08-03 08:39] LABS: Calcium 8.3 mg/dL (8.6-10.3); Potassium 4.6 mmol/L (3.5-5.0); eGFR CKD-EPI 78.9 (>60)
[2021-08-03] MEDS: Polyethylene Glycol 3350 17 GM PACKET PO PRN (09:08)
[2021-08-03] MEDS: Cholecalciferol (VIT D3) 1,000 unit TAB PO SCH (09:10)
[2021-08-03 12:29] VITALS: BP 85/46
[2021-08-03] MEDS: Magnesium Hydroxide LIQ 30 ML UDC PO PRN (13:10)
== END 2021-08-03 13:45 | DRG 464 ==
LOC: SSU 19:10 → SUATTDRO 19:10
PROVIDERS: ADMIT Student in an Organized Health Care Education/Training Program; ATTEND Hospitalist

== ENCOUNTER 2021-08-03 07:07 | Inpatient (IN) ==
[2021-08-03] MEDS ORDERED: Senna TAB 8.6 mg TAB PO PRN (15:29)
[2021-08-04] MEDS: Cholecalciferol (VIT D3) 1,000 unit TAB PO SCH (08:49)
[2021-08-04] MEDS: Enoxaparin 40 MG/0.4 ML SYR SUBCUT SCH (12:42)
[2021-08-05 06:47] LABS: ABS Basophils 0.1 10^3/ul (0-0.2); ABS Eosinophils 0.3 10^3/ul (0-0.6); ABS Lymphocytes 1.1 10^3/ul (1.0-4.8); ABS Monocytes 0.6 10^3/ul (0-0.8); ABS Neutrophils 2.7 10^3/ul (1.5-7.7); Eosinophil % 5.3 %; Hematocrit 25 % (35-47); Hemoglobin 8.5 g/dL (12.0-16.0); Mean Corpuscular HGB Conc 34 g/dL (31-36); Mean Corpuscular Hemoglobin 33 pg (27-31); Mean Corpuscular Volume 97 fL (80-97); Mean Platelet Volume 6.5 fL (7.4-10.4); Platelet Count 286 10^3/uL (150-450); Red Blood Count 2.57 10^6 /uL (3.70-4.87); Red Cell Distribution Width 14 % (10-15); White Blood Count 4.7 10^3/uL (3.5-10.8)
[2021-08-05 07:37] LABS: Albumin 2.9 g/dL (3.2-5.2); Albumin/Globulin Ratio 1.2 (1-3); Calcium 8.3 mg/dL (8.6-10.3); Globulin 2.4 g/dL (2-4); Potassium 4.3 mmol/L (3.5-5.0); Total Bilirubin 0.4 mg/dL (0.2-1.0); Total Protein 5.3 g/dL (6.4-8.9); eGFR CKD-EPI 86.8 (>60)
[2021-08-05] MEDS: Cholecalciferol (VIT D3) 1,000 unit TAB PO SCH (09:01)
[2021-08-05] MEDS: Lidocaine PATCH 5% PATCH TRANSDERM SCH (13:13)
[2021-08-05] MEDS: Enoxaparin 40 MG/0.4 ML SYR SUBCUT SCH (13:14)
[2021-08-06 06:41] VITALS: BP 109/65
[2021-08-06 08:38] LABS: Hematocrit 28 % (35-47); Hemoglobin 9.4 g/dL (12.0-16.0)
[2021-08-06] MEDS: Cholecalciferol (VIT D3) 1,000 unit TAB PO SCH (09:14)
[2021-08-06] MEDS ORDERED: Cholecalciferol (VIT D3) 1,000 unit TAB ONE (09:23)
[2021-08-06] MEDS: Lidocaine PATCH 5% PATCH TRANSDERM SCH (09:47)
== END 2021-08-06 12:25 | disposition home health service (06) | DRG 560 ==
LOC: PMRU 14:26
PROVIDERS: ADMIT Physical Medicine & Rehabilitation; ATTEND Physical Medicine & Rehabilitation